=== PATIENT | female | born 1990 | race Caucasian/White ===

== ENCOUNTER 2017-04-15 20:08 | Outpatient (CLI) | payer OTHER ==
[~2017-04-15 20:08] MED LIST: SULF1TAB35 PO
[2017-04-17 07:05] LABS: AMPHETAMINES URINE QUAL DS Negative; BARBITURATES URINE QUAL DS Negative; BENZODIAZEPINE URINE QUAL DS Negative
== END 2017-04-16 17:05 | disposition home or self-care (01) ==
LOC: SLEEP 20:08
PROVIDERS: ATTEND Nurse Practitioner Family
DX: G47.10 Hypersomnia, unspecified (principal); G47.419 Narcolepsy without cataplexy; R51 Headache; R53.83 Other fatigue
CPT/HCPCS: 36415; 80307; 95810

== ENCOUNTER 2017-04-16 06:20 | Outpatient (CLI) | payer OTHER | END 2017-04-16 17:05 | disposition home or self-care (01) | LOC: SLEEP 06:20 | PROVIDERS: ATTEND Nurse Practitioner Family | DX: G47.10 Hypersomnia, unspecified (principal); G47.50 Parasomnia, unspecified; R51 Headache; R53.83 Other fatigue | CPT/HCPCS: 95805 ==